=== PATIENT | female | born 1995 | race Caucasian/White ===

== ENCOUNTER 2017-11-21 14:11 | Emergency (ER) | payer OTHER ==
[~2017-11-21] VITALS: Ht 165.1 cm; Wt 91.0 kg
[2017-11-21 15:12] VITALS: BP 114/81
[2017-11-21 16:04] LABS: CHLORIDE 103 mEq/L (98-107)
[2017-11-21 16:06] LABS: PROTHROMBIN TIME 10.3 sec (9.4-11.6)
[2017-11-21 16:10] LABS: BASOPHILS % 0.4 % (0.0-2.0); EOSINOPHILS % 2.5 % (0.0-5.0); HEMATOCRIT. 35.9 % (36.0-48.0); HEMOGLOBIN. 11.7 g/dL (12.0-16.0); LYMPHOCYTES % 20.9 % (20.0-50.0); MEAN CORPUSCULAR HEMOGLOBIN 25.3 pg (28.0-32.0); MEAN CORPUSCULAR VOLUME 77.5 fL (81.0-99.0); MONOCYTES % 9.2 % (2.0-8.0); PLATELET 421 x1000/uL (130-400); RED BLOOD CELL COUNT 4.63 mill/uL (4.2-5.4); RED CELL DISTRIBUTION WIDTH 17.6 % (11.6-14.6)
== END 2017-11-21 19:18 | disposition left against medical advice (07) ==
LOC: ER 15:23
DX: R11.2 Nausea with vomiting, unspecified (principal)
CPT/HCPCS: 36415; 80053; 83690; 85025; 85610; 99284